=== PATIENT | male | born 1935 | race Caucasian/White ===

== ENCOUNTER → 2018-07-18 | Outpatient (CLI) | payer MEDICARE, OTHER ==
[~2018-07-18] MED LIST: REGADENOSON 0.4 MG/5 ML SYRINGE ONE
== END | disposition home or self-care (01) ==
LOC: CFH 07:24
PROVIDERS: ATTEND Internal Medicine Cardiovascular Disease
DX: I10 Essential (primary) hypertension (principal); I48.91 Unspecified atrial fibrillation; I25.2 Old myocardial infarction
CPT/HCPCS: 78452; 93017; A9502; J2785

== ENCOUNTER 2018-08-27 09:48 | Day surgery (SDC) | payer MEDICARE, OTHER ==
[~2018-08-27] VITALS: Ht 198.1 cm; Wt 134.1 kg
[2018-08-27] MEDS ORDERED: PLEASE ENTER HEIGHT AND WEIGHT MC SCH (10:30)
[2018-08-27] MEDS ORDERED: FENTANYL PF 100 MCG/2ML IV ONE (10:30)
[2018-08-27] MEDS ORDERED: MIDAZOLAM 1 MG/ML, 2ML IV ONE (10:30)
[2018-08-27] MEDS ORDERED: PLEASE ENTER ALLERGIES MC SCH (10:30)
[2018-08-27] MEDS ORDERED: IBUP-1222 PO (10:32)
[2018-08-27] MEDS ORDERED: VIT1CAPS42 PO (10:32)
[2018-08-27] MEDS ORDERED: GLUC1CAP13 PO (10:32)
[2018-08-27] MEDS ORDERED: METO25TA91 PO (10:32)
[2018-08-27] MEDS ORDERED: TURM500C4 PO (10:32)
[2018-08-27] MEDS ORDERED: CHOL2000 PO (10:32)
[2018-08-27] MEDS ORDERED: TAMS0.4C2 PO (10:32)
[2018-08-27] MEDS ORDERED: RIVA10TA2 PO (10:32)
[2018-08-27] MEDS ORDERED: LEVO137T2 PO (10:32)
[2018-08-27] MEDS ORDERED: HYDR12.517 PO (10:32)
[2018-08-27 10:56] LABS: BASOPHILS # (AUTO) 0.03 x10^3/uL (0-0.1); BASOPHILS % (AUTO) 0 % (0-1); EOSINOPHILS # (AUTO) 0.01 x10^3/uL (0-0.4); EOSINOPHILS % (AUTO) 0 % (1-7); LYMPHOCYTES # (AUTO) 0.71 x10^3/uL (1-3.4); LYMPHOCYTES % (AUTO) 12 % (22-44); MD NO; MEAN CORPUSCULAR HEMOGLOBIN 29.9 pg (27.5-34.5); MEAN CORPUSCULAR HGB CONC 32.8 g/dL (33.2-36.2); MEAN CORPUSCULAR VOLUME 91.2 fL (81-97); MEAN PLATELET VOLUME 8.8 fL (7.4-10.4); MONOCYTES % (AUTO) 7 % (2-9); NEUTROPHILS % (AUTO) 81 % (42-75); PLATELET COUNT 188 x10^3/uL (130-400); RED BLOOD COUNT 5.19 x10^6/uL (4.38-5.82); RED CELL DISTRIBUTION WIDTH 15.3 % (9.4-14.8)
[2018-08-27 11:07] LABS: ANION GAP 7 mmol/L (5-15); CALCIUM 9.1 mg/dL (8.5-10.1); CHLORIDE 109 mmol/L (98-107); CREATININE 1.19 mg/dL (0.7-1.3)
[2018-08-27] MEDS ORDERED: FENTANYL PF 100 MCG/2ML ONE (11:41)
[2018-08-27] MEDS ORDERED: MIDAZOLAM 1 MG/ML, 5ML ONE ×2 (11:41)
== END 2018-08-27 14:25 | disposition home or self-care (01) ==
LOC: CACL 09:48
PROVIDERS: ATTEND Internal Medicine Cardiovascular Disease
DX: I48.91 Unspecified atrial fibrillation (principal); I10 Essential (primary) hypertension
CPT/HCPCS: 36415; 80048; 85025; 92960; J2250; J3010

== ENCOUNTER → 2020-03-27 | Outpatient (CLI) | payer MEDICARE, OTHER ==
[~2020-03-27] MED LIST changes: +CHOL2000 PO; +GLUC1CAP13 PO; +HYDR12.517 PO; +IBUP-1222 PO; +LEVO137T2 PO; +METO25TA91 PO; +RIVA10TA2 PO; +TAMS0.4C2 PO; +TURM500C4 PO; +VIT1CAPS42 PO
== END | disposition home or self-care (01) ==
LOC: CFH 07:15
PROVIDERS: ATTEND Internal Medicine Cardiovascular Disease
DX: I48.0 Paroxysmal atrial fibrillation (principal); I10 Essential (primary) hypertension
CPT/HCPCS: 78452; 93017; A9502; J2785